=== PATIENT | female | born 1965 | race Caucasian/White ===

== ENCOUNTER 2025-01-03 13:47 | Outpatient (CLI) | payer MEDICARE, SELFPAY ==
--- NOTE | 2025-01-03 06:00 | DI.RAD_ITS ---
Exam(s) XR PAIN CLINIC CERVICAL SP 2V EXAM: XR PAIN CLINIC CERVICAL SP 2V CLINICAL HISTORY: DX: Cervical Spondylosis TECHNIQUE: 2D and realtime digital imaging was performed. CONTRAST MATERIAL: Refer to procedure report. COMPARISON: No exams were available for comparison FINDINGS: Fluoroscopy was provided for Dr. Patel during the performance of a cervical medial branch block. Please refer to the procedure report for complete details. Ka,r=3.73 mGy IMPRESSION: RADIATION DOSE DELIVERED: 0.0 0.0 0
--- NOTE | 2025-01-03 14:09 | PDOC.PAIN_ITS ---
Date of service: 01/03/25 Time of Service: 15:15 Pain Managment Procedure Note Procedure Note Procedure Note: Cervical Medial Branch Block ? Location: Right Medial Branches ? Pre-procedure Diagnosis M47.812 Spondylosis without myelopathy or radiculopathy, cervical region ? Post-procedure Diagnosis:? The same as above ? Levels:C3,4,5,6 ? Sedation: None ? Estimated blood loss:? less than 2 ml ? Surgeon:? Clovis Patel MD COMMENT: Multilevel severe degenerative changes cervical spine right greater than left ? Procedure Detail:? The procedure and potential risks were explained to the patient and informed written consent was obtained. The patient was escorted to the procedure room and placed in the LEFT lateral decubitus position. Pillows were utilized for proper positioning and comfort. Time out was performed in the procedure room with nursing staff confirming the patient's identity, procedure to be performed, allergies, and any blood thinning or anti-platelet medications. The patient's neck and upper back was prepped with ChloraPrep and draped in a sterile fashion. Sterile technique was maintained throughout the procedure.? Sterile gloves were used, a face mask was worn, and new single dose vials of all medications were used with the top being swabbed with alcohol and given time to dry prior to withdrawal of medication. A lateral fluoroscopic view was used to identify target of mid articular pillar. With fluoroscopic guidance, a 25 gauge Quincke needle was advanced to the articular waste. The distal needle tip was then advanced under lateral fluoroscopic view along the expected course of the RIGHT C3,4,5,6 medial branch to the mid-portion of the trapezoid well posterior to the exiting nerve root.? 0.5 ml of 0.5% bupivacaine was then injected through each needle tip.? The needles were then gently removed. The patient tolerated the procedure well, and was transported to the recovery area for observation and discharge instructions. Permanent images were saved and bindu rded. Follow-up:? The patient will return in1- 2 weeks for confirmatory CMBBs if they? meet the criteria from today's procedure lasting for at least 2 hours.? PRE PROCEDURE PAIN SCORE: 9/10 POST PROCEDURE PAIN SCORE: 7/10 COMMENT: Before the patient left patient had 20% pain relief. If not better will have patient return to the office for follow-up Coding Conscious Sedation used for procedure: No CPT Codes: CMBB (includes Fluoro) Cervical/Thoracic, 2nd lvl - 93937 ([id number] ~G) CMBB (includes Fluoro) Cervical/Thoracic, 3rd & add'l lvls - 89129 ([id number] ~G) CMBB (includes Fluoro) Cervical/Thoracic, single lvl - 83050 ([id number] ~G) Additional Codes: Date of Service (65088) Date of service: 01/03/25 Diagnoses: M47.812 Spondylosis without myelopathy or radiculopathy, cervical region
[2025-01-03 14:17] VITALS: BP 115/53; PULSE 86; RESP 18; TEMP 36; O2SAT 95
[2025-01-03] MEDS: Bupivacaine 0.5% Pres-Free 10 ML VIAL IJ (15:19)
[2025-01-03 15:20] VITALS: PULSE 78; O2SAT 94
[2025-01-03] MEDS: Nerve Block Tray 1 EACH MC (15:20)
== END 2025-01-03 13:48 | disposition home or self-care (01) ==
LOC: PC 13:48
PROVIDERS: PCP Specialist/Technologist Athletic Trainer; Visit Provider Anesthesiology Pain Medicine
DX: M54.2 Cervicalgia (principal); M47.812 Spondylosis without myelopathy or radiculopathy, cervical region
CPT/HCPCS: 64490; 64491; 64492; 72040; J0665